=== PATIENT | female | born 1990 | race African-American/Black ===

== ENCOUNTER 2020-03-22 23:25 | Emergency (ER) | payer BC ==
[~2020-03-22] VITALS: Ht 165.1 cm; Wt 90.7 kg
[~2020-03-22 23:25] MED LIST: APAP500 PO; DERMOPLAST SPRA56 ML; IBUPROFEN 800800 M1 PO; KEFLEX500 MG PO; LANOLIN56 GM; TUCKS MEDICATE1 EAC1
[2020-03-22] MEDS ORDERED: NUPERCAINAL56.7 GM RECTAL (23:56)
[2020-03-22] MEDS ORDERED: METAMUCIL660 GM PO (23:56)
[2020-03-22] MEDS ORDERED: ANUSOL-HC25 MG RECTAL (23:56)
[2020-03-23 00:18] VITALS: BP 120/74
== END 2020-03-23 00:19 | disposition home or self-care (01) ==
LOC: ER 23:25
DX: K64.5 Perianal venous thrombosis (principal); Z79.899 Other long term (current) drug therapy